=== PATIENT | male | born 1985 | race African-American/Black ===

== ENCOUNTER 2017-09-20 15:29 | Emergency (ER) | payer OTHER ==
[2017-09-20 15:37] VITALS: TEMP 98.3
--- NOTE | 2017-09-20 15:53 | ED ---
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 He reports he was playing basketball when his outstretched arm hit another player's knee. He reports he fell at pulling sensation with the right elbow. He is right-handed. He states that he has no shoulder pain. Denies any wrist or hand pain. No previous injuries to this elbow. He relates that he has pain and tenderness over the radial head. He denies any numbness or tingling down the arm. Denies any other injury associated with this.Patient denies any recent fever, chills, shortness of breath, chest pain, back pain, abdominal pain , nausea vomiting, numbness or tingling, dysuria or hematuria, constipation or diarrhea, headaches or visual changes, or any other current symptoms - Related Data Previous Rx's Medication Instructions Recorded Acetaminophen-Codeine 300-30mg 1 tab PO Q6H PRN #12 tablet 09/20/17 [Tylenol #3] Ibuprofen [Motrin] 600 mg PO Q8HR PRN #20 tab 09/20/17 Allergies Allergy/AdvReac Type Severity Reaction Status Date / Time No Known Allergies Allergy Verified 09/20/17 15:37 Review of Systems ROS Statement: Those systems with pertinent positive or pertinent negative responses have been documented in the HPI. ROS Other: All systems not noted in ROS Statement are negative. Past Medical History Past Medical History: No Reported History History of Any Multi-Drug Resistant Organisms: None Reported Past Surgical History: No Surgical Hx Reported Smoking Status: Never smoker Past Alcohol Use History: None Reported Past Drug Use History: Marijuana General Exam - General Exam Comments Initial Comments: 32-year-old male. Alert and oriented. No distress. Limitations: no limitations General appearance: alert, in no apparent distress Head exam: Present: atraumatic, normocephalic, normal inspection Eye exam: Present: normal appearance, PERRL, EOMI. Absent: scleral icterus, conjunctival injection, periorbital swelling ENT exam: Present: normal exam, mucous membranes moist Neck exam: Present: normal inspection. Absent: tenderness, meningismus, lymphadenopathy Respiratory exam: Present: normal lung sounds bilaterally. Absent: respiratory distress, wheezes, rales, rhonchi, stridor Cardiovascular Exam: Present: regular rate, normal rhythm, normal heart sounds. Absent: systolic murmur, diastolic murmur, rubs, gallop, clicks Right Upper Arm exam: Present: normal inspection, full ROM Elbow exam: Present: tenderness, swelling. Absent: normal inspection, full ROM (she reports patient reports he is unable to flex and fully extend the elbow. He reports pain and tenderness over the radial head.) Forearm Wrist exam: Present: normal inspection, full ROM Hand Wrist exam: Present: normal inspection, full ROM Neuro motor exam: Present: wrist extension intact, thumb opposition intact, thumb IP flexion intact, thumb adduction intact, fingers 2-5 abduction intact Neurosensory exam: Present: radial nerve intact, ulnar nerve intact, median nerve intact Vascular: Present: normal capillary refill Neurological exam: Present: alert, oriented X3 Psychiatric exam: Present: normal affect, normal mood Course Vital Signs 09/20/17 15:35 Temperature 98.3 F Pulse Rate 55 L Respiratory 20 Rate Blood Pressure 137/67 O2 Sat by Pulse 100 Oximetry Procedures - Orthopedic Splinting/Casting Injury #1 Side: right Upper Extremity Injury Location: elbow Upper Extremity Immobilizer: sling/shoulder immobilizer, posterior splint Additional Comments: Patient is N/V intact. Medical Decision Making - Medical Decision Making 32-year-old male presents with right elbow pain. He's been having this pain after having a basketball related injury. He reports that his arm feels like it pulled. Patient is neurovascularly intact. He reports pain with range of motion of the elbow. No shoulder pain or wrist or hand pain. X-rays are obtained and showed evidence of a small avulsion fracture that throat clear ulnar joint. Patient was placed in a posterior splint and sling. Discussed appropriate follow-up with orthopedic. Patient be discharged and temperature medication. All questions answered and return parameters were discussed. - Radiology Data Radiology results: report reviewed Tiny 3 mm density medially at the ulnar troponin are joint which could reflect projectile artifact. Correlate for any joint tenderness here to exclude tiny avulsion fracture. No elbow joint effusion otherwise no acute osseous abnormalities noted. Disposition Clinical Impression: Sprain of right elbow, Elbow fracture, right Disposition: HOME SELF-CARE Condition: Good Instructions: Elbow Fracture (ED) Additional Instructions: Patient has a follow-up promptly with agricultural extension specialist. Remain in the splint. Take anti-inflammatory medication for pain. Return to emergency department if any alarming signs or symptoms occur. Prescriptions: Acetaminophen-Codeine 300-30mg [Tylenol #3] 1 tab PO Q6H PRN #12 tablet PRN Reason: Pain Ibuprofen [Motrin] 600 mg PO Q8HR PRN #20 tab PRN Reason: Pain Referrals: None,Stated [Primary Care Provider] - 1-2 days Maxime Grimes MD [STAFF PHYSICIAN] - 1-2 days Time of Disposition: 16:37
--- NOTE | 2017-09-20 16:04 | XR ---
EXAMINATION TYPE: XR elbow complete RT DATE OF EXAM: 09/20/2017 COMPARISON: NONE HISTORY: 32-year-old male with pain after injury today TECHNIQUE: 3 views FINDINGS: No elbow joint effusion. Alignment is maintained. Tiny 3 mm density along the medial aspect of the ul reno trochlear joint could be projectional artifact. Otherwise, no acute fracture or dislocation seen. IMPRESSION: 1. Tiny 3 mm density medially at the ulnotrochlear joint could be projectional artifact. Correlate fo r any point tenderness here to exclude a tiny avulsion fracture. 2. No elbow joint effusion are otherwise any acute osseous abnormality seen.
[2017-09-20] MEDS ORDERED: ACET/COD 300 MG/30 MG STARTER PACK 6 TAB BTL PO STA (16:34)
[2017-09-20 16:59] VITALS: BP 131/78; PULSE 90; RESP 16
== END 2017-09-20 16:50 | disposition home or self-care (01) ==
LOC: EC 15:29
DX: S52.001A Unspecified fracture of upper end of right ulna, initial encounter for closed fracture (principal); W50.0XXA Accidental hit or strike by another person, initial encounter; Y93.67 Activity, basketball; Y92.009 Unspecified place in unspecified non-institutional (private) residence as the place of occurrence of the external cause
CPT/HCPCS: 29105; 99284